=== PATIENT | male | born 1985 | race Caucasian/White ===

== ENCOUNTER → 2017-10-15 | Outpatient (CLI) | payer OTHER ==
--- NOTE | 2017-10-15 13:33 | KCIC ---
CT of the head without contrast History:Closed head injury yesterday. Headache. Dizziness. Technique: Standard noncontrast images are obtained. Exposure: One or more of the following individualized dose reduction techniques were utilized for this examination: 1. Automated exposure control 2. Adjustment of the mA and/or kV according to patient size 3. Use of iterative reconstruction technique. Comparison: None Findings: Posterior fossa is unremarkable. No evidence of acute intracranial hemorrhage, mass effect, midline shift or abnormal extra-axial fluid collection. Schaeffer-white matter distinction is intact. Ventricles unremarkable and symmetric Visualized orbits are unremarkable. Visualized paranasal sinuses and mastoids are clear. No evidence of depressed skull fracture. Impression: No evidence of acute intracranial abnormality. Electronically signed by: Josh Mo MD (10/15/2017 1:29 PM) [id number]
== END | disposition home or self-care (01) ==
LOC: KCIC CT 13:02
PROVIDERS: ATTEND Preventive Medicine Occupational Medicine
DX: S09.90XA Unspecified injury of head, initial encounter (principal); R42 Dizziness and giddiness
CPT/HCPCS: 70450

== ENCOUNTER → 2019-07-29 | Outpatient (CLI) | payer BC, OTHER ==
--- NOTE | 2019-07-29 16:16 | KCIC ---
Examination: CERVICAL SPINE 5V History: Increasing pain over the past 2 years. Headaches. Paresthesias involving the hands. Comparison/Correlation: None Findings: A total of 6 images of the cervical spine were obtained. Alignment is normal. Vertebral body heights and disc spaces are adequate. Prevertebral soft tissues are normal. No fracture or bony destruction. Neural foramina are patent bilaterally. Partially visualized lung apices are unremarkable. Impression: No definite degenerative change. Unremarkable exam. Electronically signed by: Rafael Choudhary MD (07/29/2019 4:14 PM) [facility]
== END | disposition home or self-care (01) ==
LOC: KCIC 11:05
PROVIDERS: ATTEND Family Medicine
DX: M54.2 Cervicalgia (principal); R51 Headache; R20.2 Paresthesia of skin
CPT/HCPCS: 72050

== ENCOUNTER → 2021-02-02 | Outpatient (CLI) | payer OTHER ==
--- NOTE | 2021-02-02 15:37 | KCIC ---
XR KNEE _3 VIEWS_LT DATE: 02/02/2021 11:13 AM INDICATION: Medial Left knee pain since November 2020. COMPARISON: None. FINDINGS: There is no evidence of acute fracture or dislocation. Tiny curvilinear ossific density adjacent to t he margin of the medial femoral condyle. The joint spaces are normal. There is no joint effusion. IMPRESSION: Tiny curvilinear ossific density adjacent to the margin of the medial femoral condyle, which may repr esent sequela of prior MCL injury. If clinically warranted, this could be further characterized by MR Xie. Electronically signed by: Gomez Awan MD (02/02/2021 3:35 PM) [id number]
== END ==
LOC: KCIC 11:10
PROVIDERS: ATTEND Nurse Practitioner Family
DX: M25.562 Pain in left knee (principal)
CPT/HCPCS: 73562

== ENCOUNTER → 2021-02-06 | Outpatient (CLI) | payer OTHER ==
--- NOTE | 2021-02-06 16:56 | KCIC ---
EXAMINATION: MRI LEFT KNEE WITHOUT IV CONTRAST CLINICAL HISTORY: Medial left knee pain and instability. History of injury in Dec and again one week ago. TECHNIQUE: Multiplanar multisequential images obtained through the knee without intravenous contrast. COMPARISON: Left knee radiographs 02/02/2021 FINDINGS: MENISCI: Medial Meniscus: Intact. Lateral Meniscus: Intact. LIGAMENTS: ACL: Intact PCL: Mild increased signal in the femoral attachment with minimal subjacent marrow edema, suggestive of low grade sprain MCL: Mild cortical irregularity with subjacent marrow edema and overlying soft tissue edema at the an terior femoral attachment, compatible with small avulsion fracture involving a small portion of the M CL anterior fibers. The bulk of the ligament remains attached at this level. The avulsion fracture it self is better appreciated on comparison radiographs. LCL Complex: Intact CARTILAGE: Medial Femoral Condyle: Normal Medial Tibial Plateau: Normal Lateral Femoral Condyle: Normal Lateral Tibial Plateau: Normal Patella: Small areas(s) of predominantly low grade (less than 50% thickness) cartilage loss and or fi ssuring with smaller area(s) of full thickness cartilage loss and or fissuring in the patellar apex Trochlea: Normal TENDONS: Distal quadriceps and patellar tendons intact. Popliteus tendon intact. BONES AND MARROW: No evidence of acute fracture or suspicious marrow replacing process. MUSCLES: Muscle bulk and signal intensity within normal limits. JOINT FLUID AND SYNOVIUM: No joint effusion. No synovitis. No Hernandez's cyst. IMPRESSION: Findings compatible with a small avulsion fracture at the MCL femoral attachment only involving a sma ll portion of the anterior fibers. Bulk of the MCL remains intact. Findings suggestive of low-grade PCL sprain. Small full-thickness chondral fissure in the patellar apex. Electronically signed by: Rene Arthur DO (02/06/2021 4:53 PM) [id number]
== END ==
LOC: KCIC MRI 13:37
PROVIDERS: ATTEND Nurse Practitioner Family
DX: M25.562 Pain in left knee (principal)
CPT/HCPCS: 73721